=== PATIENT | female | born 1985 | race Caucasian/White ===

== ENCOUNTER 2019-08-28 00:30 | Emergency (ER) | payer BC ==
--- NOTE | 2019-08-28 10:27 | EDM.PDOC ---
ED HPI GENERAL MEDICAL PROBLEM - General Chief Complaint: [employer] Problem Stated Complaint: Low abdominal cramping, 14 weeks Time Seen by Provider: 08/28/19 00:35 Source of Information: Reports: Patient History Limitations: Reports: No Limitations - History of Present Illness INITIAL COMMENTS - FREE TEXT/NARRATIVE: Pt. presents to ER with complains of low back pain with R sided radicular symptoms. Denies any specific injury, but she has had chronic back pain in the past. Pt. is concerned because she is approx. 14 weeks gestation with a high- risk . 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 She is concerned as she has been having spasms into the R lateral portion of the abdomen. She requests FHT evaluation. Denies any vaginal bleeding. No abdominal cramping. Denies any fever or chills. No saddle anesthesia or incontinence. Onset: Today Onset Date: 08/28/19 Location: Reports: Back Low abdomen, right low back, hip Pain Score (Numeric/FACES): 7 - Related Data Allergies Allergy/AdvReac Type Severity Reaction Status Date / Time amoxicillin Allergy Cannot Verified 08/28/19 01:03 Remember Penicillins Allergy Cannot Verified 08/28/19 01:03 Remember Home Meds: Home Meds Enoxaparin Sodium [Lovenox] 40 mg SQ DAILY 08/28/19 [History] Past Medical History EX[employer] History: Reports: , Other (See Below) Other [employer] History: Frequent miscarriages Hematologic History: Reports: Anticoagulation Therapy, Other (See Below) Other Hematologic History: Clotting disorder. ED ROS GENERAL - Review of Systems Review Of Systems: See Below Constitutional: Reports: No Symptoms HEENT: Reports: No Symptoms Respiratory: Reports: No Symptoms Cardiovascular: Reports: No Symptoms Endocrine: Reports: No Symptoms GI/Abdominal: Reports: No Symptoms : Reports: No Symptoms Musculoskeletal: Reports: Back Pain Skin: Reports: No Symptoms Neurological: Reports: No Symptoms Psychiatric: Reports: No Symptoms Hematologic/Lymphatic: Reports: No Symptoms Immunologic: Reports: No Symptoms ED EXAM, GENERAL - Physical Exam Exam: See Below Exam Limited By: No Limitations General Appearance: Alert, WD/WN, No Apparent Distress Back Exam: Normal Inspection, Full Range of Motion, Decreased Range of Motion, Muscle Spasm, Paraspinal Tenderness Extremities: Normal Inspection, Normal Range of Motion, Non-Tender, No Pedal Edema, Normal Capillary Refill Neurological: Alert, Oriented, CN II-XII Intact, Normal Cognition, Normal Gait, Normal Reflexes, No Motor/Sensory Deficits Skin Exam: Warm, Dry, Intact, Normal Color, No Rash Course - Vital Signs Last Recorded V/S: Last Vital Signs Temp 36.6 C 08/28/19 00:30 Pulse 76 08/28/19 00:30 Resp 16 08/28/19 00:30 BP 130/46 L 08/28/19 00:30 Pulse Ox Departure - Departure Time of Disposition: Disposition: Home, Self-Care 01 Clinical Impression: Low back pain radiating to right lower extremity - Discharge Information Instructions: Acute Back Pain, Adult Referrals: PCP,Unobtain [Ordering Only Provider] - Forms: ED Department Discharge Additional Instructions: Home to rest. Tylenol as needed for discomfort. Follow-up with your OB regarding guidance on chiropractic, etc. Sepsis Event Note - Evaluation Sepsis Screening Result: No Definite Risk - Focused Exam Vital Signs: Vital Signs Temp Pulse Resp BP 08/28/19 00:30 36.6 C 76 16 130/46 L Date Exam was Performed: 08/28/19 Time Exam was Performed: 10:22 - Assessment/Plan Plan: Home to rest. Tylenol as needed for discomfort. Follow-up with your OB regarding guidance on chiropractic, etc.
== END 2019-08-28 00:53 | disposition home or self-care (01) ==
LOC: VM.ED 00:30
DX: O99.89 Other specified diseases and conditions complicating pregnancy, childbirth and the puerperium (principal); M54.5 Low back pain; Z79.899 Other long term (current) drug therapy; Z79.01 Long term (current) use of anticoagulants; Z88.1 Allergy status to other antibiotic agents; Z88.0 Allergy status to penicillin; Z3A.14 14 weeks gestation of pregnancy
CPT/HCPCS: 99283